=== PATIENT | female | born 1970 | race Hispanic/Latino ===

== ENCOUNTER 2016-06-26 08:07 | Emergency (ER) | payer BC ==
--- NOTE | 2016-06-26 08:12 | C.PDOC ---
History Of Present Illness 46 year old patient presents to the ED complaining of asthma exacerbation since last night. Patient states she normally uses MDI "on occasion," but it has been worse since the season change. Patient only uses Albuterol. Patient denies fever , vomiting, or other associated symptoms. She also denies smoking or using allergy medications. ASTHMA EXAC SINCE LAST NIGHT. PS NORMALLY USES MDI "ON OCCASION" BUT NOW WORSE SINCE SEASON CHANGE. USES ALBUTEROL ONLY. NO FEVER, OTHER ASSOC SX. DENIES SMOKING, ALLERGY MED USE. EXAM MILD RESP DIST NONTOXIC HEENT NEG LUNGS NEB IN PROGRESS. B/L EXP WHEEZE DIFF W RETRACTION. SPEAKING FULL SENTENCES SKIN WARM DRY GAIT WNL Time Seen by Provider: 06/26/16 08:08 Chief Complaint (Nursing): Respiratory Distress History Per: Patient Onset/Duration Of Symptoms: Hrs (last night) Current Symptoms Are (Timing): Still Present Preciptating Factors: CHange In Weather Severity: Mild Recent travel outside of the [place]: No - Asthma History Medication Use: PRN (Albuterol) Past Medical History Reviewed: Historical Data, Nursing Documentation, Vital Signs Vital Signs: Last Vital Signs Temp 98.3 F 06/26/16 08:18 Pulse 94 H 06/26/16 08:30 Resp 18 06/26/16 08:18 BP 125/82 06/26/16 08:18 Pulse Ox 96 06/26/16 09:47 - Medical History PMH: Asthma, Hypothyroidism Family History: States: Unknown Family Hx - Social History Hx Alcohol Use: No Hx Substance Use: No - Immunization History Hx Tetanus Toxoid Vaccination: No Hx Influenza Vaccination: No Hx Pneumococcal Vaccination: No Review Of Systems Except As Marked, All Systems Reviewed And Found Negative. Constitutional: Negative for: Fever Respiratory: Positive for: Other (asthma exacerbation) Gastrointestinal: Negative for: Vomiting Physical Exam - Physical Exam Appears: Non-toxic, Other (mild respiratory distress) Skin: Warm, Dry Head: Atraumatic, Normacephalic Eye(s): bilateral: Normal Inspection, EOMI Ear(s): Bilateral: Normal Nose: Normal Oral Mucosa: Moist Throat: Normal, No Erythema Neck: Normal ROM, Supple Chest: Symmetrical Cardiovascular: Rhythm Regular Respiratory: No Rales, No Rhonchi, Wheezing (bilateral upon expiration), Other ( Nebulizer in progress; difficulty with retractions; speaking full sentences) Back: Normal Inspection Extremity: Normal ROM Neurological/Psych: Oriented x3 Gait: Steady (within normal limits) ED Course And Treatment O2 Sat by Pulse Oximetry: 96 (room air) Pulse Ox Interpretation: Normal Progress - Re-Evaluation Re-evaluation Note: 06/26/16 09:00 PS FEELS BETTER, PERSIST SOB. PF 300. WILL CONT OBS 06/26/16 09:47 PS FEELS BETTER, PF 300. PS WISHES DC HOME - Data Reviewed Data Reviewed: Old records Disposition Counseled Patient/Family Regarding: Diagnosis, Need For Followup, Rx Given - Disposition Referrals: [facility] [Outside] [facility] [Outside] [facility] [Other] Disposition: HOME/ ROUTINE Disposition Time: 09:48 Condition: IMPROVED Prescriptions: Albuterol HFA [Ventolin HFA 90 mcg/actuation (8 g)] 1 puff IH Q4 #1 inhaler predniSONE [Prednisone] 60 mg PO DAILY #12 tab Instructions: Asthma (ED) - Clinical Impression Clinical Impression: Exacerbation of asthma - Scribe Statement The provider has reviewed the documentation as recorded by the Dannyibdoni Mendoza Provider Attestation: All medical record entries made by the Scribe were at my direction and personally dictated by me. I have reviewed the chart and agree that the record accurately reflects my personal performance of the history, physical exam, medical decision making, and the department course for this patient. I have also personally directed, reviewed, and agree with the discharge instructions and disposition.
[2016-06-26] MEDS: Albuterol-Ipratrop 3 mg / 0.5 (3 ml) UD IH SCH ×3 (08:24→09:11)
[2016-06-26] MEDS ORDERED: Albuterol-Ipratrop 3 mg / 0.5 (3 ml) UD ONE ×2 (08:30→09:18)
[2016-06-26 09:53] VITALS: BP 124/82; PULSE 110; RESP 19; TEMP 98.2; O2SAT 95
== END 2016-06-26 10:11 | disposition home or self-care (01) ==
LOC: C.ER 08:07
DX: J45.901 Unspecified asthma with (acute) exacerbation (principal)